=== PATIENT | male | born 1975 | race Caucasian/White ===

== ENCOUNTER 2024-08-17 10:24 | Emergency (ER) | payer BC, OTHER ==
[2024-08-17] MEDS ORDERED: Lidocaine 1% (PF) 30 ML VIAL ONE (10:42)
== END 2024-08-17 11:10 | disposition home or self-care (01) ==
LOC: NAV ERS 10:24
DX: S61.412A Laceration without foreign body of left hand, initial encounter (principal); W26.8XXA Contact with other sharp object(s), not elsewhere classified, initial encounter
CPT/HCPCS: 12001; 99282